=== PATIENT | male | born 1940 | race Caucasian/White ===

== ENCOUNTER → 2017-03-11 | Outpatient (CLI) | payer MEDICARE, OTHER | END | disposition home or self-care (01) | LOC: KCIC CT 12:09 | DX: J33.9 Nasal polyp, unspecified (principal); J32.9 Chronic sinusitis, unspecified (principal); J34.2 Deviated nasal septum | CPT/HCPCS: 70486 ==

== ENCOUNTER → 2018-12-01 | Outpatient (CLI) | payer MEDICARE, OTHER ==
[~2018-12-01] MED LIST: IOHEXOL 300 MG/ML 100ML VIAL. IV ONE
--- NOTE | 2018-12-02 09:12 | KCIC ---
Examination: CT ABDOMEN PELVIS WO/W History: Gross hematuria Comparison/Correlation: None Findings: Axial images of the abdomen and pelvis were obtained without contrast. Axial images of the abdomen were obtained following IV contrast in the nephrographic phase. Postcontrast imaging in the inflammatory phases included the entire abdomen and pelvis. 3-D volume rendered images of the collecting systems were provided. Visualized lung bases are unremarkable. Punctate hepatic cysts or biliary hamartomas present involving the right hepatic dome. Pancreas and adrenal glands are unremarkable. Gallbladder fossa is unremarkable. No enlarged abdominal or pelvic lymph nodes. Renal contours are unremarkable. Few very small to characterize left renal superior pole lesions which probably represent cysts or benign process noted. No ascites or pelvic free fluid. No inflammatory findings about the cecum noted. There are no suspicious filling defects involving the pelvicalyceal systems or ureters. The very distal aspect of the ureters do not adequately opacified with contrast. Bladder is unremarkable but it is minimally opacified with contrast on this exam. Mild compression deformity of L3 is present. Exaggerated lordosis of the lumbar spine is present. Slight anterolisthesis of L3 in relation L4 is present. Grade 1 anterolisthesis of L4 transitional L5 is present. Bilateral laminectomy is noted involving the lower lumbar spine. Mild prostatomegaly is present. Impression: No mass lesions or suspicious filling defects are identified. Consider further assessment if clinically warranted. Prostatomegaly. PQRS Compliance Statement: One or more of the following individualized dose reduction techniques were utilized for this examination: 1. Automated exposure control 2. Adjustment of the mA and/or kV according to patient size 3. Use of iterative reconstruction technique Electronically signed by: Jesus Finch MD (12/02/2018 9:09 AM) [facility]
== END | disposition home or self-care (01) ==
LOC: KCIC CT 11:22
PROVIDERS: ATTEND Urology
DX: N28.89 Other specified disorders of kidney and ureter (principal); M43.16 Spondylolisthesis, lumbar region; M43.8X6 Other specified deforming dorsopathies, lumbar region
CPT/HCPCS: 74178; 82565; Q9967